=== PATIENT | female | born 2005 | race Hispanic/Latino ===

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

== ENCOUNTER 2024-04-26 17:48 | Emergency (ER) | payer OTHER, SELFPAY ==
--- OUTSIDE RECORDS SUMMARY | 2024-04-26 17:50 | XMS_ITS | Clinical Summary ---
Author Organization [facility] Address [address] [place] [address] Phone Care Team Providers Care Battery Plate Remover Name Role Phone Yeison Jiang MD Primary Care Provider [phone] Allergies No known active allergies Medications pantoprazole (PROTONIX) 40 MG Tablet Delayed Response Take 1 Tablet by mouth daily. 30 Tablet 2 12/21/2021 Active Active Problems No known active problems Social History Tobacco Use Types Packs/Day Years Used Date Smoking Tobacco: Never Smokeless Tobacco: Never Tobacco Cessation:Counseling Given: Yes Alcohol Use Standard Drinks/Week Comments Not Currently 0 (1 standard drink = 0.6 oz pur e alcohol) Sexually Active Control Partners Comments Yes None Male Comments Unknown Sex and Gender Information Value Date Recorded Sex Assigned at Not on file Legal Sex Female 2:12 PM CDT Gender Identity Not on file Sexual Orientation Not on file Last Filed Vital Signs Vital Sign Reading Time Taken Comments Blood Pressure 118/74 12/21/2021 1:35 PM CDT Pulse 76 12/21/2021 1:35 PM CDT Temperature 36.8 ??C (98.3 ??F) 12/21/2021 1:35 PM CD T Respiratory Rate 14 12/21/2021 1:35 PM CDT Oxygen Saturation - - Inhaled Oxygen Concentration - - Weight 68.2 kg (150 lb 6.4 oz) 12/21/2021 1:35 P M CDT Height 156.8 cm (5' 1.75 ) 12/21/2021 1:35 PM CD T Body Mass Index 27.73 12/21/2021 1:35 PM CDT Plan of Treatment Health Maintenance Due Date Last Done Comments Hepatitis C Virus (HCV) Screening 2003 TdaP Immunization 2003 Human Papillomavirus (HPV) Immunization (1 - 3-dose series) 12/18/2018 Meningococcal B Immunization (1 of 2 - Standard) 2019 Hepatitis B Immunization (1 of 3 - 19+ 3-dose series) 12/18/2022 Influenza Immunization (#1) 2023 SARS-COV-2 Immunization (1 - season) 2023 Respiratory Syncytial Virus (RSV) Immunization (Adult) (1 - 1-dose 75+ series) 12/18/2078 Meningococcal Immunization (ACWY) Aged Out No longer eligible based on patient's age to complete this topic Pneumococcal Immunization Combined Aged Out No longer eligible based on patient's age to complete this topic Rotavirus Immunization Aged Out No lo nger eligible based on patient's age to complete this [place] [address] [place] * Guarantor: XXX DO NOT USE [facility] 2021 Account Type Relation to Patient Date of Phone Billing Address [facility] [address] [place] [address] [place] Care Teams Battery Plate Remover Relationship Specialty Start Date End Date Yeison Jiang MD [address] [place] [address] PCP - General Family Medicine 12/21/21
--- OUTSIDE RECORDS SUMMARY | 2024-04-26 17:50 | XMS_ITS | Clinical Summary ---
Author Organization [facility] Address [address] [place] [address] Care Team Providers Care Alley Tender Name Role Phone Roverto Cody MD Unavailable [phone] Espinoza Rico MD Primary Care Provider [phone] Allergies No known active allergies Medications Aurovela Fe 1-20, 28, 1 mg-20 mcg (21)/75 mg (7) per tablet Take 1 tablet by mouth daily 1 Active ibuprofen (ADVIL,MOTRIN) 200 mg tab/capIndicati ons:Anti-inflam matory,Pain Take 3 tablet/capsule (600 mg total) by mouth every 6 (six) hours as needed for pain 150 capsule 2 Active docusate sodium (COLACE) 100 mg capsuleIndicati ons:constipatio n Take 1 capsule (100 mg total) by mouth 2 (two) times a day as needed for constipation 30 capsule 1 2 Active Additional Information Patient not taking.Reported on 08/23/2021 naproxen (NAPROSYN) 500 mg tablet Take 500 mg by mouth 2 (two) times a day 2 Active Active Problems Problem Noted Date Diagnosed Date Abscess and cellulitis of gluteal region 021 Assessment & Plan (07/14/2020 1:23 PM CDT): (see A&P for Infected pilonidal cyst) Trochanteric bursitis of both hips 07/13/2020 Assessment & Plan (07/14/2020 1:19 PM CDT): 07/13 pelvis MRI showed Moderate right and mild left bilateral greater trochanteric Bursitis. Imaging consistent with tender bilateral hips on exam, reported numbness and pain on walking. Given patient's active lifestyle participating in dance & track, it is easily possible that she may have injured these areas from overuse or strain. It is also possible she may have developed bursitis from laying on her sides to avoid the pain associated with her pilonidal cyst infection. Patient would likely benefit from continued analgesics & PT/OT consult. - PT consulted - Tylenol, ibuprofen PRN; consider oxycodone for breakthrough pain Assessment & Plan (07/13/2020 11:43 PM CDT): 07/13 pelvis MRI showed Moderate right and mild left bilateral greater trochanteric Bursitis. Imaging consistent with tender bilateral hips on exam, reported numbness and pain on walking. Given patient's active lifestyle participating in dance & track, it is easily possible that she may have injured these areas from overuse or strain. It is also possible she may have developed bursitis from laying on her sides to avoid the pain associated with her pilonidal cyst infection. Patient would likely benefit from continued analgesics & PT/OT consult. - PT/OT consult - Tylenol, ibuprofen PRN; consider oxycodone for breakthrough pain Pilonidal abscess 06/30/2020 Assessment & Plan (07/14/2020 1:22 PM CDT): (see A&P for Infected pilonidal cyst) Infected pilonidal cyst 06/30/2020 Assessment & Plan (07/14/2020 1:20 PM CDT): Shannon is a 14 yo previously healthy female with known pilonidal cyst s/p I&D, who is coming in due to new fevers and intermittent bilateral numbness and weakness. Elevated inflammatory markers and WBCs on lab results. UA WNL, pointing away from UTI. Although she does have a cough, she has no SOB or focal lung findings that would suggest a respiratory infection. Her pilonidal cyst is the most likely source of infection given her exam, lab results, and MRI findings suggestive of cellulitis and small abscess. Empiric Unasyn started. Blood cultures positive for gram positive cocci in clusters. Will follow for speciation. Will follow up with PAWS & ID for further recommendations. Plan: - continue IV Unasyn - follow fever curve - ID consulted, appreciate recs - PASW consulted regarding potential wound care - 07/13 MRI spine & pelvis: bursitis, cellulitis with 4 mm fluid collection - Tylenol, ibuprofen PRN; consider oxycodone for breakthrough pain - F/U blood culture results Assessment & Plan (07/13/2020 11:42 PM CDT): Shannon is a 14 yo previously healthy female with known pilonidal cyst s/p I&D, who is coming in due to new fevers and intermittent bilateral numbness and weakness. Elevated inflammatory markers and WBCs on lab results. UA WNL, pointing away from UTI. Although she does have a cough, she has no SOB or focal lung findings that would suggest a respiratory infection. Her pilonidal cyst is the most likely source of infection given her exam, lab results, and MRI findings suggestive of cellulitis and small abscess. Empiric Unasyn started. We will also follow the results of her blood cultures to assess for septicemia. Plan: - continue IV Unasyn - follow fever curve - ID consulted, appreciate recs - 07/13 MRI spine & pelvis: bursitis, cellulitis with 4 mm fluid collection - Tylenol, ibuprofen PRN; consider oxycodone for breakthrough pain Immunizations Name Administration Dates Next Due PPD TEST 01/02/2021 Surgical History Surgery Date Site/Laterality Comments PILONIDAL CYST DRAINAGE 06/29/2020 Medical History Medical History Date Comments Pilonidal cyst Family History Medical History Relation Name Comments Diabetes Other Hypertension Other Relation Name Status Comments Other Social History Tobacco Use Types Packs/Day Years Used Date Smoking Tobacco: Every Day Vaping Smokeless Tobacco: Never Tobacco Cessation:Counseling Given: No Comments No Sex and Gender Information Value Date Recorded Sex Assigned at Not on file Legal Sex Female 8:13 PM CDT Gender Identity Not on file Sexual Orientation Not on file Obstetrics History Last Filed Vital Signs Vital Sign Reading Time Taken Comments Blood Pressure 103/70 08/23/2021 9:09 AM CDT Pulse 71 08/15/2021 12:47 PM CDT Temperature 36.4 ??C (97.5 ??F) 08/15/2021 1 2:40 PM CDT Respiratory Rate 16 08/15/2021 12:4 7 PM CDT Oxygen Saturation 100% 08/15/2021 12: 47 PM CDT Inhaled Oxygen Concentration - - Weight 68.8 kg (151 lb 10.8 oz) 08/23/2021 9:09 AM CDT Height 153.9 cm (5' 0.59 ) 08/23/2021 9:09 AM CD T Body Mass Index 29.05 08/23/2021 9:09 AM CDT Plan of Treatment Scheduled Procedures Name Priority Associated Diagnoses Date/Ti me EXCISION PILONIDAL CYST Pilonidal cyst Health Maintenance Due Date Last Done Comments Depression Screening 2003 Hepatitis C Screening 2003 Pneumococcal vaccine <65 (1 of 1 - PPSV23 or PCV20) 12/18/2009 04/08/2006, 07/17/2004, 05/10/2004, Additional history exists Regular Well Visit/Exam 18-64 12/18/2021 Influenza Vaccine (#1) 2023 , 01/10/2020, 05/21/2016, Additional history exists DTaP/Tdap/Td Vaccine (7 - Td or Tdap) 08/29/2024 08/29/2014, 12/21/2007, 01/06/2006, Additional history exists Varicella Vaccines Completed 12/21/2007, 04/08/2006 HPV Vaccines Completed 08/01/2015, 06/2015, 01/10/2015 Meningococcal Vaccine Completed 01/10/2020, 015 Meningococcal B Vaccine Completed 08/10/2020, 01/09 Insurance [place] [employer] [place] [employer] [place] ID[place] ID[place] [address] [place] [id number] Advance Directives For more information, please contact: [phone] * Full Code (Latest Code Status on File) Date Activated Date Inactivated Comments 07/13/2020 4:51 PM 07/14/2020 9:52 PM * Full Code Date Activated Date Inactivated Comments 06/29/2020 10:15 PM 06/30/2020 7:15 PM Care Teams Alley Tender Relationship Specialty Start Date End Date Espinoza Rico MD [address] [facility] [address] [place] [address] PCP - General Pediatrics 09/07/20 Roverto Cody MD [address] [facility] [address] [place] [address] Referring Physician Pediatric Surgery 07/14/20
--- OUTSIDE RECORDS SUMMARY | 2024-04-26 17:50 | XMS_ITS | Referral Summary ---
Author Organization [facility] Address [address] [place] [address] Care Team Providers Care Concierge Name Role Phone Roverto Cody MD Unavailable [phone] Espinoza Rico MD Primary Care Provider Allergies No known active allergies Medications Aurovela [...] Administration Dates Next Due PPD TEST 01/02/2021 Social History Tobacco Use Types Packs/Day Years [...] Date/Ti me EXCISION PILONIDAL CYST Pilonidal cyst Insurance [facility] [employer] [place] [employer] IDPA IDPA IDPA IDCT IDCT Advance Directives For more information, please contact: [phone] * Full Code (Latest Code Status on File) Date Activated Date Inactivated Comments 07/13/2020 4:51 PM 07/14/2020 9:52 PM * Full Code Date Activated Date Inactivated Comments 06/29/2020 10:15 PM 06/30/2020 7:15 PM Care Teams Concierge Relationship Specialty Start Date End Date Espinoza Rico MD [address] [place] [address] PCP - General Pediatrics 09/07/20 Roverto Cody MD [address] [place] [address] Referring Physician Pediatric Surgery 07/14/20
--- OUTSIDE RECORDS SUMMARY | 2024-04-26 17:50 | XMS_ITS | Encounter Summary ---
Author Organization [facility] Address [address] [place] [address] Phone Care Team Providers Care Pot Lining Supervisor Name Role Phone Roverto Cody MD Unavailable [phone] No, Physician Primary Care Provider Espinoza Rico MD Primary Care Provider Encounter Details Date Type Department Care Team (Late st Contact Info) Description 07/28/2020 Orders Only [facility] Pediatric Infectious Disease [address] [place] [address] [place] [address] Pradeep Johnson MD [address] [place] [address] [address] [place] [address] Pilonidal abscess (Primary Dx) Social History Tobacco Use Types Packs/Day Years Used Date Smoking Tobacco: Never Comments No Sex and Gender Information Value Date Recorded Sex Assigned at Not on file Legal Sex Female 8:13 PM CDT Gender Identity Not on file Sexual Orientation Not on file documented as of this encounter Plan of Treatment Scheduled Procedures Name Priority Associated Diagnoses Date/Ti me EXCISION PILONIDAL CYST Pilonidal cyst documented as of this encounter Results * (ABNORMAL) Comprehensive metabolic panel (07/28/2020 3:28 PM CDT) Sodium 136 135 - 145 mmol/L [facility] Potassium, pl 4.1 3.3 - 4.9 mmol/L [facility] Chloride 104 100 - 114 mmol/L [facility] CO2 25 20 - 30 mmol/L [facility] Anion gap 7 2 - 15 mmol/L [facility] BUN 12 9 - 18 mg/dL [facility] Creatinine 0.61 0.40 - 1.00 mg/dL [facility] Glucose 86 70 - 199 mg/dL [facility] Comment: Interpretive Data Fasting glucose >/= 126 mg/dl is diagnostic for diabetes. ?? Fasting is defined as no caloric intake for at least 8 hours. Fasting glucose between 100 mg/dl to 125 mg/dl is diagnostic of prediabetes. In a patient with classic symptoms of hyperglycemia or hyperglycemic crisis, a random glucose >/= 200 mg/dl is diagnostic for diabetes. In the absence of unequivocal hyperglycemia, results should be confirmed by repeat testing. The classification and Diagnosis of Diabetes Diabetes Care 2019; 42:S13-S28. Current interpretive data was last revised 2017. Calcium 9.0 8.5 - 10.3 mg/dL [facility] Bilirubin, total 0.4 0.1 - 1.2 mg/dL [facility] Protein, pl 6.9 6.5 - 8.5 g/dL [facility] Albumin 4.2 3.2 - 5.0 g/dL [facility] Alk phos 51(L) 70 - 260 Units/L [facility] ALT 17 7 - 45 Units/L [facility] AST 20 10 - 50 Units/L [facility] Blood specimen (specimen) 07/28/2020 3:28 PM CDT 07/28/2020 3:38 PM CDT Pradeep Johnson MD LAB BLOOD ORDERABLES Final R esult [facility] Department [place] [address] * Erythrocyte sedimentation rate (07/28/2020 3:28 PM CDT) Erythrocyte sedimentation rate 7 3 - 13 mm/hr [facility] Blood specimen (specimen) 07/28/2020 3:28 PM CDT 07/28/2020 3:38 PM CDT us Pradeep Johnson MD LAB BLOOD ORDERABLES Final R esult [facility] [place] [address] * CRP (acute phase) (07/28/2020 3:28 PM CDT) [facility] CRP <3.0 <=10.0 mg/L [facility] Blood specimen (specimen) 07/28/2020 3:28 PM CDT 07/28/2020 3:38 PM CDT Pradeep Johnson MD LAB BLOOD ORDERABLES Final R esult Performing Organization Address City/[facility] [place] [address] * CBC with auto differential (07/28/2020 3:28 PM CDT) [facility] WBC 8.2 3.8 - 9.9 K/cumm [facility] Hgb 14.4 11.9 - 15.5 g/dL [facility] Hct 43.0 35.6 - 45.5 % [facility] Plt 331 150 - 400 K/cumm [facility] MPV 10.7 9.1 - 12.3 fL [facility] RBC 5.04 3.90 - 5.20 M/cumm [facility] MCV 85.3 81.3 - 96.4 fL [facility] MCH 28.6 27.1 - 33.3 pg [facility] MCHC 33.5 32.3 - 35.7 g/dL [facility] RDW CV 13.4 11.1 - 14.9 % [facility] RDW SD 41.7 35.7 - 48.1 fL [facility] NRBC abs 0.00 0.00 - 0.01 K/cumm [facility] Blood specimen (specimen) 07/28/2020 3:28 PM CDT 07/28/2020 3:38 PM CDT us Pradeep Johnson MD LAB BLOOD ORDERABLES Final R esult [facility] Department [place] [address] documented in this encounter Visit Diagnoses Diagnosis Pilonidal abscess- Primary Pilonidal cyst with abscess documented in this encounter Care Teams Pot Lining Supervisor Relationship Specialty Start Date End Date No, Physician PCP - General 07/28/20 09/06/20 Espinoza Rico MD PCP - General Pediatrics 09/07/20 Roverto Cody MD [address] [facility] [address] [place], [place] [id number] Referring Physician Pediatric Surgery 07/14/20 documented as of this encounter
[2024-04-26 18:05] VITALS: BP 103/67; PULSE 67; RESP 16; TEMP 36.5; O2SAT 100
[2024-04-26 19:07] LABS: EDCOVIDSCREEN Negative (Negative); EDINFLUASCREEN Negative (Negative); EDINFLUBSCREEN Negative (Negative); EDSTREPNEGPOS1 Negative (Negative)
--- NOTE | 2024-04-26 19:23 | ED.URI ---
HPI - URI/Sore Throat General Chief Complaint: Upper Respiratory Infection Stated Complaint: Cough/Sore Throat Time Seen by Provider: 04/26/24 18:45 Source: patient Mode of arrival: ambulatory Limitations: no limitations History of Present Illness HPI Narrative: 18-year-old female presents with complaint of cough, chest congestion for approximately 1 week. Reports she were several shifts in a row and now has worse voice. Patient taking [id number] medications without relief of symptoms. Reports increased fatigue. Afebrile. All systems reviewed and negative except as noted above. Related Data Home Medications ?Medication ?Instructions ?Recorded ?Confirmed ?Last Taken ?Type norgestimate 0.25 mg-ethinyl 1 tablet PO DAILY 07/04/20 12/20/22 Unknown History estradiol 35 mcg tablet (Estarylla) Allergies Allergy/AdvReac Type Severity Reaction Status Date / Time No Known Allergies Allergy Verified 07/04/20 17:25 Review of Systems Review of Systems: CONSTITUTIONAL: Denies fever, chills, or sweats. reports fatigue. EYES: Denies visual changes, redness, or discharge. ENT: reports rhinorrhea, congestion. Denies sore throat, or otalgia. CARDIOVASCULAR: Denies chest pain, palpitations, or edema. RESPIRATORY: Reports cough . Denies dyspnea. GASTROINTESTINAL: Denies abdominal pain, nausea, vomiting, or diarrhea. GENITOURINARY: Denies dysuria or hematuria. SKIN: Denies rash or itching. MUSCULOSKELETAL: Denies back pain, joint pain, or myalgia. NEUROLOGIC: Denies headache, numbness, or weakness. PSYCHIATRIC: Denies anxiety or depression. All other systems reviewed are negative, except as documented in HPI. PMFSH Comments At time of signature, agree with nursing past medical, surgical, social and family history. There is no relevant family history pertinent to the presenting complaint. Exam Narrative: GENERAL: This is a well-nourished, well-developed patient, in no apparent distress. HEAD: normocephalic, atraumatic. EYES: PERRL. Sclera clear/white. Vision is grossly intact. EARS: External ears normal, auditory canals clear and without drainage, TMs normal without perforation. Hearing grossly intact. NOSE: External nose normal with Clear nasal drainage, mild congestion THROAT: Mucous membranes moist, posterior pharynx clear. NECK: Neck supple, non-tender without lymphadenopathy, masses or thyromegaly. CARDIOVASCULAR: Regular rate and rhythm without murmurs, gallops, or rubs. RESPIRATORY: Expiratory wheeze to bilateral lower lung gomez otherwise clear. Breath sounds equal bilaterally. No rales, or rhonchi. SKIN: warm, Dry, intact with no suspicious lesions or rash, good texture and turgor. NEURO: awake, alert, and oriented to person, place and time. There were no obvious focal neurologic abnormalities. EXTREMITIES: No joint tenderness, effusion, or edema noted. Course Course Level of Care: Express Care Visit Vital Signs Vital signs: Vital Signs Temperature 36.5 C 04/26/24 18:05 Pulse Rate 67 04/26/24 18:05 Respiratory Rate 16 04/26/24 18:05 Blood Pressure 103/67 04/26/24 18:05 Pulse Oximetry 100 04/26/24 18:05 Oxygen Delivery Room Air 04/26/24 18:05 Temperature 36.5 C 04/26/24 18:05 Pulse Rate 67 04/26/24 18:05 Respiratory Rate 16 04/26/24 18:05 Blood Pressure 103/67 04/26/24 18:05 Pulse Oximetry 100 04/26/24 18:05 Oxygen Delivery Room Air 04/26/24 18:05 reviewed MDM - URI/Sore Throat MDM Narrative Medical decision making narrative: negative COVID, influenza and strep test. Strep culture ordered. Will wait for strep results prior to treating with antibiotics. patient alert, nontoxic. Oxygen saturation 100% room air. Patient is aware of diagnosis, understands and agrees to treatment plan. Anticipatory guidance given. Patient agrees to follow-up as directed and is aware of reasons to seek care at the emergency department. Portions of this record may have been created with voice recognition software Differential Diagnosis Differential diagnosis: Likely upper respiratory infection, sinusitis, viral infection, bronchitis, influenza and pharyngitis Lab Data Labs: Lab Results 04/26/24 Range/Units 19:03 POC Influenza A Ag Negative (Negative) POC Influenza B Ag Negative (Negative) POC SARS CoV-2 Ag Negative (Negative) POC Grp A Strep Screen Negative (Negative) Discharge Plan Discharge Clinical Impression: Viral upper respiratory tract infection with cough Patient Disposition: Home, Self-Care Condition: Stable Instructions: Upper Respiratory Infection (ED) Additional Instructions: your COVID, influenza and strep test was negative today. A strep culture was ordered and results will take 24-48 hours. If your strep culture is positive we will call you at that time and prescribed an antibiotic. Take medications as prescribed. Take Tylenol or ibuprofen every 6-8 hours as needed for pain and fever. Drink at least 64 oz of water a day. Place cool mist humidifier in bedroom where you sleep. Follow-up with your doctor if symptoms are not improving. Patient Language: Bengali Prescriptions: New benzonatate 200 mg capsule 200 mg PO TID PRN (Reason: cough) Qty: 20 0RF methylprednisolone [Medrol (Johnie)] 4 mg tablets,dose pack See Rx Instructions PO .COMPLEX Qty: 21 0RF Rx Instructions: orally per package directions No Action norgestimate-ethinyl estradiol [Estarylla] 0.25-35 mg-mcg Tablet 1 tablet PO DAILY Follow-up/Referrals: PHYSICIAN,PUBLIC SPEAKING TEACHER [Primary Care Provider] - Stand Alone Forms: Work/School Release IP Time of Disposition: 18:46
== END 2024-04-26 18:51 | disposition home or self-care (01) ==
PROVIDERS: Emergency Provider Nurse Practitioner Family
DX: J06.9 Acute upper respiratory infection, unspecified (principal); R05.9 Cough, unspecified; Z20.822 Contact with and (suspected) exposure to COVID-19
CPT/HCPCS: 87081; 87426; 87804; 87880; 99213; G0463